=== PATIENT | male | born 1985 | race Caucasian/White ===

== ENCOUNTER 2017-08-10 12:24 | Emergency (ER) | payer BC ==
[~2017-08-10] VITALS: Ht 175.3 cm; Wt 153.6 kg
[~2017-08-10 12:24] MED LIST: NOHOMEMEDS
[2017-08-10 13:13] LABS: HEMATOCRIT 41.1 % (38.0-50.0); HEMOGLOBIN 13.7 G/DL (12.5-16.6); MCH 29.4 PG (29.0-34.0); MCHC 33.3 G/DL (30.0-36.0); MCV 88.2 FL (86-99); PLATELET COUNT 273 K/uL (156-360); RBC DIS.WIDTH-CV 13.1 % (11.8-14.6); RBC DIS.WIDTH-SD 42.5 % (39-53); RED BLOOD COUNT 4.66 M/uL (4.00-5.50)
[2017-08-10 13:21] LABS: CHLORIDE 105 mEq/L (99-109); POTASSIUM 3.8 mEq/L (3.7-5.4); SODIUM 137 mEq/L (136-147)
[2017-08-10 13:23] LABS: GLUCOSE 90 mg/dL (70-99)
[2017-08-10 13:27] LABS: CREATININE 0.9 mg/dL (0.6-1.3); GFR ESTIMATE (CALCULATED) > 59 mL/min/ (58.99-99999)
[2017-08-10 13:28] LABS: UREA NITROGEN (BUN) 11 mg/dL (9-23)
[2017-08-10 13:34] LABS: TROP-I INTERPRETATION NEGATIVE; TROPONIN-I < 0.01 ng/mL (0.0-0.30)
[2017-08-10] MEDS ORDERED: LOPRESSOR50 MG PO (13:40)
[2017-08-10] MEDS ORDERED: ZOLPIDEM TARTRA10 MG PO (13:40)
[2017-08-10] MEDS ORDERED: OXYCODONE HCL15 MG PO (13:40)
[2017-08-10] MEDS ORDERED: OXYMORPHONE HCL15 MG PO (13:40)
[2017-08-10 15:39] LABS: TROP-I INTERPRETATION NEGATIVE; TROPONIN-I < 0.01 ng/mL (0.0-0.30)
[2017-08-10 16:43] VITALS: BP 130/65
== END 2017-08-10 16:43 | disposition home or self-care (01) ==
LOC: EME 12:24
PROVIDERS: Nurse Practitioner Family
DX: R00.2 Palpitations (principal); R07.9 Chest pain, unspecified; R61 Generalized hyperhidrosis
CPT/HCPCS: 71046; 80048; 84484; 85027; 93005

== ENCOUNTER 2017-08-11 20:09 | Emergency (ER) | payer BC ==
[~2017-08-11] VITALS: Ht 175.3 cm; Wt 153.9 kg
[~2017-08-11 20:09] MED LIST changes: +LOPRESSOR50 MG PO; +OXYCODONE HCL15 MG PO; +OXYMORPHONE HCL15 MG PO; +ZOLPIDEM TARTRA10 MG PO
[2017-08-11 20:21] VITALS: BP 159/82
[2017-08-11 20:40] LABS: HEMATOCRIT 40.3 % (38.0-50.0); HEMOGLOBIN 13.5 G/DL (12.5-16.6); MCH 29.4 PG (29.0-34.0); MCHC 33.5 G/DL (30.0-36.0); MCV 87.8 FL (86-99); PLATELET COUNT 275 K/uL (156-360); RBC DIS.WIDTH-CV 13.1 % (11.8-14.6); RBC DIS.WIDTH-SD 41.4 % (39-53); RED BLOOD COUNT 4.59 M/uL (4.00-5.50); WHITE BLOOD COUNT 9.7 K/uL (4.1-10.2)
[2017-08-11 20:49] LABS: ALBUMIN 4.1 g/dL (3.2-4.8); CHLORIDE 108 mEq/L (99-109); POTASSIUM 3.9 mEq/L (3.7-5.4); SODIUM 141 mEq/L (136-147)
[2017-08-11 20:51] LABS: GLUCOSE 87 mg/dL (70-99)
[2017-08-11 20:52] LABS: TOTAL PROTEIN 7.6 g/dL (6.4-8.3)
[2017-08-11 20:53] LABS: TOTAL BILIRUBIN 0.5 mg/dL (0.0-1.0)
[2017-08-11 20:55] LABS: ALKALINE PHOSPHATASE 63 IU/L (3-129); CREATININE 0.9 mg/dL (0.6-1.3); GFR ESTIMATE (CALCULATED) > 59 mL/min/ (58.99-99999)
[2017-08-11 20:56] LABS: UREA NITROGEN (BUN) 11 mg/dL (9-23)
[2017-08-11 20:57] LABS: AST (GOT) 33 IU/L (2-34)
[2017-08-11 20:58] LABS: ALT (GPT) 53 IU/L (3-49)
[2017-08-11 23:23] LABS: DIRECT BILIRUBIN 0.2 mg/dL (0.0-0.3); LIPASE 74 U/L (1.0-51.0)
[2017-08-11 23:28] LABS: TROP-I INTERPRETATION NEGATIVE; TROPONIN-I < 0.01 ng/mL (0.0-0.30)
== END 2017-08-12 01:30 | disposition left against medical advice (07) ==
LOC: EME 20:09
DX: R07.81 Pleurodynia (principal); Z53.21 Procedure and treatment not carried out due to patient leaving prior to being seen by health care provider
CPT/HCPCS: 80053; 81003; 82248; 83690; 84484; 85027

== ENCOUNTER 2017-10-08 10:42 | Emergency (ER) | payer OTHER, BC ==
[2017-10-08 10:57] LABS: BASOPHIL (%) 0.3 % (0-1); EOSINOPHIL (%) 1.6 % (0-5); EOSINOPHIL COUNT 0.2 K/uL (0-0.3); HEMATOCRIT 42.9 % (38.0-50.0); HEMOGLOBIN 14.3 G/DL (12.5-16.6); IMMATURE GRANULOCYTE (%) 0.4 % (0.0-0.7); LYMPHOCYTE (%) 20.9 % (15-42); LYMPHOCYTE COUNT 2.6 K/uL (1.0-2.8); MCH 29.2 PG (29.0-34.0); MCHC 33.3 G/DL (30.0-36.0); MCV 87.7 FL (86-99); MONOCYTE (%) 7.2 % (3-12); MONOCYTE COUNT 0.9 K/uL (0-0.8); NEUTROPHIL (%) 69.6 % (45-76); NEUTROPHIL COUNT 8.8 K/uL (1.8-6.4); RBC DIS.WIDTH-CV 12.6 % (11.8-14.6); RBC DIS.WIDTH-SD 40.2 % (39-53); RED BLOOD COUNT 4.89 M/uL (4.00-5.50); WHITE BLOOD COUNT 12.6 K/uL (4.1-10.2)
[2017-10-08 11:09] LABS: AMYLASE 48 IU/L (1-118); CHLORIDE 107 mEq/L (99-109); POTASSIUM 4.1 mEq/L (3.7-5.4); SODIUM 139 mEq/L (136-147)
[2017-10-08 11:11] LABS: GLUCOSE 96 mg/dL (70-99)
[2017-10-08 11:14] LABS: SERUM ETHYL ALCOHOL < 10 mg/dL
[2017-10-08 11:15] LABS: CREATININE 0.9 mg/dL (0.6-1.3); GFR ESTIMATE (CALCULATED) > 59 mL/min/ (58.99-99999)
[2017-10-08 11:16] LABS: UREA NITROGEN (BUN) 8 mg/dL (9-23)
[2017-10-08 11:18] LABS: LIPASE 59 U/L (1.0-51.0)
[2017-10-08 11:52] LABS: PLAT.SUFFICIENCY ADEQUATE; PLATELET COUNT 265 K/uL (156-360)
[2017-10-08 12:04] VITALS: BP 138/94
[2017-10-08 13:27] LABS: APPEARANCE CLEAR ((CLEAR)); BILIRUBIN NEGATIVE; BLOOD NEGATIVE; COLOR STRAW ((YELLOW)); GLUCOSE (STRIP) NEGATIVE; KETONES NEGATIVE; LEUKOCYTES NEGATIVE; NITRITE NEGATIVE; PROTEIN (STRIP) NEGATIVE; SPECIFIC GRAVITY 1.025 (1.000-1.030); UCUL ADDED? NO; UROBILINOGEN 0.2 MG/DL (0.2-1.0)
[2017-10-08 13:36] LABS: AMPHETAMINE NEGATIVE (500 ng/mL); BENZODIAZEPINES PRESUMPTIVE POSITIVE (150 ng/mL); COCAINE NEGATIVE (150 ng/mL); METHAMPHETAMINE NEGATIVE (500 ng/mL); OPIATES (MORPHINE) NEGATIVE (100 ng/mL); PHENCYCLIDINE NEGATIVE (25 ng/mL); THC CANNABINOIDS NEGATIVE (50 ng/mL)
[2017-10-08 13:37] LABS: BARBITURATES NEGATIVE (200 ng/mL); BUPRENORPHINE NEGATIVE (10 ng/mL); METHADONE NEGATIVE (200 ng/mL); OXYCODONE PRESUMPTIVE POSITIVE (100 ng/mL); PROPOXYPHENE NEGATIVE (300 ng/mL); TRICYCLIC ANTIDEPRESSANTS NEGATIVE (300 ng/mL)
[2017-10-08 14:09] LABS: BENZODIAZEPINES, URINE SCREEN Negative (200 ng/mL)
== END 2017-10-08 13:32 | disposition home or self-care (01) ==
LOC: TRA 10:42
PROVIDERS: Emergency Medicine
DX: S80.01XA Contusion of right knee, initial encounter (principal); S70.01XA Contusion of right hip, initial encounter; R04.0 Epistaxis; S80.211A Abrasion, right knee, initial encounter; V47.5XXA Car driver injured in collision with fixed or stationary object in traffic accident, initial encounter; Y92.410 Unspecified street and highway as the place of occurrence of the external cause; R91.1 Solitary pulmonary nodule; M19.90 Unspecified osteoarthritis, unspecified site; M51.24 Other intervertebral disc displacement, thoracic region; K44.9 Diaphragmatic hernia without obstruction or gangrene; Z90.49 Acquired absence of other specified parts of digestive tract
CPT/HCPCS: 70450; 70486; 71260; 72125; 72129; 72132; 73502; 73564; 74177; 80048; 81003; 82150; 83690; 84999; 85025; 86850; 86900; 86901; 99281; 99285; G0480; J2405; J3010; J7030